=== PATIENT | female | born 1955 | race Caucasian/White ===

== ENCOUNTER 2017-07-11 06:02 | Emergency (ER) | payer OTHER ==
[~2017-07-11] VITALS: Ht 154.9 cm; Wt 60.8 kg
[~2017-07-11 06:02] MED LIST: ACETAMINOPHEN-1 EAC2 PO; ALPRAZOLAM0.5 M4 PO; ALPRAZOLAM1 M2 PO; ATENOLOL25 M1 PO; CYCLOBENZAPRINE10 M1 PO; IBUPROFEN600 M1 PO; K-TAB ER10 MEQ PO; MULTI-DAY VITA1 EACH PO; ONDANSETRON4 MG/2 M3 IV; PROTONIX40 M3 PO; REGLAN10 M1 PO; RISPERDAL0.25 M1 PO; RISPERDAL1 M1 PO; TRAZODONE HCL150 M1 PO; TYLENOL325 M1 PO; VITAMIN D35000 UNI1 PO; XANAX0.25 M1 PO
--- NOTE | 2017-07-11 06:13 | ED GI/GU/ABDOMINAL COMPLAINT ---
History of Present Illness General Chief Complaint: General Adult Stated Complaint: BIBA RLQ PAIN, FLANK PAIN Source: patient Exam Limitations: no limitations Vital Signs & Intake/Output Vital Signs & Intake/Output Vital Signs Date Time Temp Pulse Resp B/P B/P Pulse O2 O2 Flow FiO2 Mean Ox Delivery Rate 07/11 0744 97.6 87 16 116/57 98 Room Air 07/11 0605 97.6 83 20 122/66 98 Room Air Allergies Coded Allergies: Penicillins (RASH 09/07/15) calcium (VOMITING 09/07/15) mirtazapine (From REMERON) (PER PT RASH 09/07/15) nabumetone (From RELAFEN) (HIVES 09/07/15) sulfamethoxazole (From BACTRIM) (RASH 09/07/15) trimethoprim (From BACTRIM) (RASH 09/07/15) Reconcile Medications Acetaminophen With Codeine (Acetaminophen-Cod #4 Tablet) 1 EACH TABLET 1 TAB PO BID PRN PAIN (Reported) Alprazolam 0.5 MG TABLET 1 TAB PO TID ANXIETY (Reported) Atenolol 25 MG TABLET 1 TAB PO BID HEART (Reported) Cholecalciferol (Vitamin D3) (Vitamin D3) 5,000 UNIT TABLET 1 TAB PO DAILY VITAMIN SUPPORT (Reported) Cyclobenzaprine HCl 10 MG TABLET 10 MG PO Q12P PRN DIRECTED Metoclopramide HCl (Reglan) 10 MG TABLET 1 TAB PO 4 TIMES/DAY PRN NAUSEA 30 minutes before meals and bedtime Pantoprazole Sodium (Protonix) 40 MG TABLET.DR 1 TAB PO DAILY GASTRITIS Potassium Chloride (K-Tab ER) 10 MEQ TABLET.ER 1 TAB PO DAILY PRN LOW K Risperidone (Risperdal) 1 MG TABLET 0.25 MG PO FOUR TIMES A DAY Triage Note: PT BIBA FROM HOME C/O RLQ PAIN AND RT FLANK PAIN SINCE 2 AM. PMH OF KIDNEY STONES. DENIES UTI S/S. DENIES N/V/D. Triage Nurses Notes Reviewed? yes ? n Is pt currently ? No Duration: hour(s): Timing: recent history Quality/Severity: cramping, sharpness Location: right lower quadrant Radiation: RLQ Activities at Onset: none Associated Symptoms: abdominal pain, nausea/vomiting HPI: 61 yo woman, h/o parkinson's, kidney stone x 7, presents with right flank pain, right lower quadrant pain, nausea. "It feels like a kidney stone." No chest pain, diarrhea, shortness of breath, dysuria, fever. (Rosemarie BHATT,Carlos Mcnamara) Past History Travel History Traveled to [place] past 21 day No Medical History Any Pertinent Medical History? 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 No (Carlos Houston MD) Review of Systems Review of Systems Constitutional: Reports: no symptoms. EENTM: Reports: no symptoms. Respiratory: Reports: no symptoms. Cardiovascular: Reports: no symptoms. GI: Reports: no symptoms. Genitourinary: Reports: no symptoms. Musculoskeletal: Reports: no symptoms. Skin: Reports: no symptoms. Neurological/Psychological: Reports: no symptoms. Hematologic/Endocrine: Reports: no symptoms. Immunologic/Allergic: Reports: no symptoms. All Other Systems: Reviewed and Negative (Rosemarie BHATT,Carlos Mcnamara) Physical Exam Physical Exam General Appearance: well developed/nourished, mild distress, moderate distress Head: atraumatic, normal appearance Eyes: Bilateral: normal appearance. Ears, Nose, Throat, Mouth: hearing grossly normal, moist mucous membrane Neck: normal inspection, supple, full range of motion Respiratory: normal breath sounds, chest non-tender, no respiratory distress, quiet respiration Cardiovascular: regular rate/rhythm Gastrointestinal: normal bowel sounds, soft, mild tenderness to palpation Back: normal inspection Extremities: normal range of motion Neurologic/Psych: no motor/sensory deficits, awake, alert, oriented x 3 Core Measures ACS in differential dx? No Sepsis Present: No Sepsis Focused Exam Completed? No (Carlos Houston MD) Progress Differential Diagnosis: uti, pyelo vs other. Plan of Care: Orders Procedure Date/time Status URINALYSIS 07/11 613 Complete TROPONIN LEVEL 07/11 613 Complete LIPASE 07/11 613 Complete HEPATIC FUNCTION PANEL 07/11 613 Complete CBC WITHOUT DIFFERENTIAL 07/11 613 Complete BASIC METABOLIC PANEL 07/11 613 Complete AMYLASE 07/11 613 Complete EKG 07/11 613 Active Laboratory Tests 07/11/17 0805: Urine Color YEL, Urine Clarity CLEAR, Urine pH 6.5, Ur Specific [place] 1.010, Urine Protein NEG, Urine Ketones NEG, Urine Nitrite NEG, Urine Bilirubin NEG, Urine Urobilinogen 0.2, Ur Leukocyte Esterase NEG, Ur Microscopic SEDIMENT EXAMINED, Urine RBC 15-25 H, Urine WBC 1-3 H, Ur Epithelial Cells FEW, Urine Bacteria FEW H, Urine Hemoglobin LARGE H, Urine Glucose NEG 07/11/17 0704: Anion Gap 16, Estimated GFR > 60, BUN/Creatinine Ratio 14.4, Glucose 164 H, Calcium 9.9, Total Bilirubin 0.7, Direct Bilirubin 0.5 H, AST 29, ALT 28, Alkaline Phosphatase 85, Troponin I < 0.01, Total Protein 7.5, Albumin 4.3, Amylase < 30 L, Lipase 15 L, CBC w Diff NO MAN DIFF REQ, RBC 4.52, MCV 90.7, MCH 30.6, MCHC 33.8, RDW 13.0, MPV 6.9 L, Gran % 68.0, Lymphocytes % 23.6, Monocytes % 6.7, Eosinophils % 1.5, Basophils % 0.2, Absolute Granulocytes 5.5, Absolute Lymphocytes 1.9, Absolute Monocytes 0.5, Absolute Eosinophils 0.1, Absolute Basophils 0 Diagnostic Imaging: Viewed by Me: CT Scan. Discussed w/RAD: CT Scan. Initial ED EKG: nsr, poor r wave progression Hand-Off Endorsed To: Hubert Fortune MD Endorsed Time: 0700 Pending: CT, labs (Rosemarie BHATT,Carlos Mcnamara) Radiology Impression: PATIENT: MADINA KATHLEEN PRESENT AGE: 61 PATIENT ACCOUNT NO: [id number] : 54 LOCATION: [facility] ORDERING PHYSICIAN: Carlos Houston MD SERVICE DATE: 07/11/17 EXAM TYPE: CAT - CT ABD & PELVIS W/O IV CONTRAS EXAMINATION: CT ABDOMEN AND PELVIS WITHOUT CONTRAST CLINICAL INFORMATION: Right flank pain. Evaluate for renal stones. COMPARISON: CT abdomen and pelvis dated 03/09/2017 TECHNIQUE: Multidetector volumetric imaging was performed from the superior aspect of the liver through the pubic symphysis. Sagittal and coronal reformatted images were obtained on the technologist's workstation. DLP: 255.93 mGy-cm FINDINGS: LUNG BASES: Bandlike atelectatic changes noted in bilateral bases, right greater than left. Somewhat similar appearance also seen on the previous exam. LIVER, GALLBLADDER, AND BILIARY TREE: The liver is normal in size, shape, and attenuation. No focal hepatic lesion or biliary ductal dilatation is present. Cholelithiasis. No evidence of acute cholecystitis. PANCREAS: Limited assessment with mild diffuse atrophy. SPLEEN: Unremarkable. ADRENAL GLANDS: Unremarkable. KIDNEYS AND URETERS : Right-sided mild hydroureteronephrosis. Punctate 0.2 x 0.3 cm calculus noted along the bladder wall at the level of the right UVJ. No additional calculi noted along the course of the ureter. Punctate nonobstructing calculus also noted in the midright kidney measuring approximately 0.1 to 0.2 cm (series 3 image 276) Left kidney demonstrates tiny nonobstructing calculi in the upper pole measuring approximately 0.2 cm (series 3 image 202 31). No obstructing calculi identified. Bilateral renal cysts were better visualized on the contrast -enhanced CT scan. BLADDER: Tiny 0.2 x 0.3 cm calcification along the right posterior bladder wall at the level of UVJ. GASTROINTESTINAL TRACT: No acute bowel pathology. Incompletely distended stomach. Moderate fecal material noted throughout the large bowel. Limited assessment of the bowel and rectal wall. Submucosal fatty changes right hemicolon noted again. This represents a nonspecific finding. ABDOMINAL WALL: Tiny fat-containing umbilical hernia. LYMPH NODES: Normal. VASCULAR: Atherosclerotic disease. PELVIC VISCERA: Asymmetric prominence right ovary/adnexa likely secondary to presence of ovarian cyst. Evaluation is limited on noncontrast images. Further assessment with nonemergent pelvic ultrasound recommended. Uterus and left ovary appear unremarkable. There is no free fluid. OSSEOUS STRUCTURES: No acute osseous abnormality. Sclerotic focus right S2-S3 vertebra has remained stable compared to 09/07/2015. It appears slightly more prominent since 10/12/2010. No additional lytic or sclerotic lesions identified. IMPRESSION: 1. Punctate 0.2 x 0.3 cm calculus right UVJ. Mild right hydronephrosis and hydroureter. 2. Additional nonobstructing calculi bilateral kidneys. 3. Renal cysts were better visualized with the contrast-enhanced CT scan. 4. Cholelithiasis. No evidence of acute cholecystitis. 5. Interval development of mild asymmetric prominence right ovary likely secondary to ovarian cysts. It can be further assessed with nonemergent pelvic ultrasound. DICTATED BY: Jordi Gordon MD DATE/TIME DICTATED:07/11/17729 SCOUTS:EBEN DATE/TIME TRANSCRIBED:07/11/17729 CONFIDENTIAL, DO NOT COPY WITHOUT APPROPRIATE AUTHORIZATION. <Electronically signed in Other Vendor System> SIGNED BY: Jordi Gordon MD 07/11/17 08 Comments: 07/11/2017 8:22:04 AM patient signed out to me by Dr. 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 (Devika BHATT,Hubert Resendiz) Departure Departure Condition: Stable Referrals: Torri BHATT,Ananda Grimm (PCP/Family) Departure Forms: Customer Survey General Discharge Information (Rosemarie BHATT,Carlos Mcnamara) Departure Disposition: HOME OR SELF CARE Clinical Impression Primary Impression: Right flank pain Secondary Impressions: Renal colic on right side Additional Instructions: Follow-up with Dr. acevedo this week for reevaluation. Try to catch the stone and bring it to the urologist for testing. Maintained a good fluid intake. Ketorolac every 6 hours as needed for pain. Add Percocet if necessary. Notify your primary care doctor of this emergency department visit and treatment plan. Return if any concerns or sudden worsening. Please note that there might be incidental findings in your evaluation that are unrelated to the current emergency department visit. Please notify your primary care doctor about this emergency department visit in order to obtain and review all of the testing performed so that these incidental findings can be monitored as needed. If you had an x-ray performed, please understand that some fractures may not be seen on the initial set of x-rays. If your symptoms persist you might need a repeat set of x-rays to check for such a fracture. If you had a laceration evaluated, please understand that foreign bodies such as glass or wood may not be visible to the naked eye or on plain x-rays. If the wound becomes red, swollen, increasingly more painful or if there is any drainage from the wound, please have it reevaluated by a physician for the possibility of a retained foreign body. If you're unable to follow up as outlined in the discharge instructions please return to the emergency department. Thank you for choosing the [facility] Emergency Department for your care. It was a pleasure to serve you today. Hubert Fortune M.D. [facility] Prescriptions: Current Visit Scripts Ketorolac Tromethamine 1 TAB PO Q6P PRN kidney stone #16 TAB patient received IV ketorolac in the emergency department Oxycodone HCl/Acetaminophen (Percocet 5-325 MG Tablet) 1-2 TAB PO Q6P PRN pain #16 TAB (Devika BHATT,Hubert Resendiz) Critical Care Note Critical Care Note Critical Care Time: 30-74 min (Devika BHATT,Hubert Resendiz)
[2017-07-11 07:29] LABS: ABSOLUTE BASOPHIL COUNT 0 /CUMM (0.0-0.2); ABSOLUTE EOSINOPHIL COUNT 0.1 /CUMM (0.0-0.7); ABSOLUTE GRANULOCYTE CT 5.5 /CUMM (1.4-6.5); ABSOLUTE LYMPH COUNT 1.9 /CUMM (1.2-3.4); ABSOLUTE MONOCYTE COUNT 0.5 /CUMM (0.10-0.60); BASOPHIL % 0.2 % (0.0-2.0); EOSINOPHIL % 1.5 % (0-5); MEAN CORPUSCULAR HGB 30.6 PG (27.0-31.0); MEAN CORPUSCULAR HGB CONC 33.8 G/DL (33.0-37.0); MEAN CORPUSCULAR VOLUME 90.7 FL (81.0-99.0); MEAN PLATELET VOLUME 6.9 FL (7.4-10.4); PLATELET COUNT 280 /CUMM (130-400); RED BLOOD CELL CT 4.52 /CUMM (4.20-5.40); WHITE BLOOD CELL COUNT 8.2 /CUMM (4.8-10.8)
--- NOTE | 2017-07-11 08:00 | CT SCAN REPORT ---
EXAMINATION: CT ABDOMEN AND PELVIS WITHOUT CONTRAST CLINICAL INFORMATION: Right flank pain. Evaluate for renal stones. COMPARISON: CT abdomen and pelvis dated 03/09/2017 TECHNIQUE: Multidetector volumetric imaging was performed from the superior aspect of the liver through the pubic symphysis. Sagittal and coronal reformatted images were obtained on the technologist's workstation. DLP: 255.93 mGy-cm FINDINGS: LUNG BASES: Bandlike atelectatic changes noted in bilateral bases, right greater than left. Somewhat similar appearance also seen on the previous exam. LIVER, GALLBLADDER, AND BILIARY TREE: The liver is normal in size, shape, and attenuation. No focal hepatic lesion or biliary ductal dilatation is present. Cholelithiasis. No evidence of acute cholecystitis. PANCREAS: Limited assessment with mild diffuse atrophy. SPLEEN: Unremarkable. ADRENAL GLANDS: Unremarkable. KIDNEYS AND URETERS: Right-sided mild hydroureteronephrosis. Punctate 0.2 x 0.3 cm calculus noted along the bladder wall at the level of the right UVJ. No additional calculi noted along the course of the ureter. Punctate nonobstructing calculus also noted in the midright kidney measuring approximately 0.1 to 0.2 cm (series 3 image 276) Left kidney demonstrates tiny nonobstructing calculi in the upper pole measuring approximately 0.2 cm (series 3 image 202 31). No obstructing calculi identified. Bilateral renal cysts were better visualized on the contrast-enhanced CT scan. BLADDER: Tiny 0.2 x 0.3 cm calcification along the right posterior bladder wall at the level of UVJ. GASTROINTESTINAL TRACT: No acute bowel pathology. Incompletely distended stomach. Moderate fecal material noted throughout the large bowel. Limited assessment of the bowel and rectal wall. Submucosal fatty changes right hemicolon noted again. This represents a nonspecific finding. ABDOMINAL WALL: Tiny fat-containing umbilical hernia. LYMPH NODES: Normal. VASCULAR: Atherosclerotic disease. PELVIC VISCERA: Asymmetric prominence right ovary/adnexa likely secondary to presence of ovarian cyst. Evaluation is limited on noncontrast images. Further assessment with nonemergent pelvic ultrasound recommended. Uterus and left ovary appear unremarkable. There is no free fluid. OSSEOUS STRUCTURES: No acute osseous abnormality. Sclerotic focus right S2-S3 vertebra has remained stable compared to 09/07/2015. It appears slightly more prominent since 10/12/2010. No additional lytic or sclerotic lesions identified. IMPRESSION: 1. Punctate 0.2 x 0.3 cm calculus right UVJ. Mild right hydronephrosis and hydroureter. 2. Additional nonobstructing calculi bilateral kidneys. 3. Renal cysts were better visualized with the contrast-enhanced CT scan. 4. Cholelithiasis. No evidence of acute cholecystitis. 5. Interval development of mild asymmetric prominence right ovary likely secondary to ovarian cysts. It can be further assessed with nonemergent pelvic ultrasound.
[2017-07-11] MEDS ORDERED: KETOROLAC TROME10 M1 PO ×2 (08:33→08:35)
[2017-07-11] MEDS ORDERED: PERCOCET 5-3251 EACH PO ×2 (08:33→08:35)
[2017-07-11 08:51] VITALS: BP 118/60
== END 2017-07-11 08:54 ==
LOC: ERH 06:02
PROVIDERS: Pediatrics
DX: N23 Unspecified renal colic (principal)
CPT/HCPCS: 74176; 81001; 93005; 93010; 96374; 96375; J1885; J2405